=== PATIENT | male | born 1980 | race Caucasian/White ===

== ENCOUNTER 2021-01-13 08:49 | Emergency (ER) | payer OTHER, SELFPAY ==
--- NOTE | ~2021-01-13 | XR_ITS ---
EXAMINATION: XR chest 2V DATE: 01/13/2021 09:52 INDICATION: Productive cough. Smoker. TECHNIQUE: Frontal and lateral views of the chest were obtained. COMPARISON: None. FINDINGS: The chest demonstrates clear lungs without pneumonia, pleural effusion, or pneumothorax. Th e heart size is normal. IMPRESSION: 1. No acute cardiopulmonary disease. Reviewed, dictated and finalized at location A.
[2021-01-13 09:10] VITALS: BP 124/83; PULSE 82; RESP 16; TEMP 36.3; O2SAT 100
--- NOTE | 2021-01-13 09:22 | ED.URI ---
HPI - URI/Sore Throat General Chief Complaint: Upper Respiratory Infection Stated Complaint: Cough,Congestion Time Seen by Provider: 01/13/21 09:23 Source: patient Mode of arrival: ambulatory Limitations: no limitations History of Present Illness HPI Narrative: Yusef Delgado is a 40 yo male with no PMH who comes to [facility] with a 1 week history of sore throat, intermittent occipital headache, subjective temperature, shortness of breath, and sinus drainage. He rates his sore throat is a 3 on a 10; he has not been monitoring his fever- has been taking Krysta Tylenol and Mucinex Related Data Home Medications Medication Instructions Recorded Confirmed No Home Medications 01/13/21 01/13/21 Allergies Allergy/AdvReac Type Severity Reaction Status Date / Time red meat Allergy Unknown Uncoded 01/13/21 09:28 Review of Systems Review of Systems: Narrative: CONSTITUTIONAL: Denies fever, chills, sweats. Complaining of shortness of breath EYES: Denies visual changes, redness, discharge. ENT: Denies rhinorrhea, has congestion, has sore throat, otalgia. CARDIOVASCULAR: Denies chest pain, palpitations, edema. RESPIRATORY: Denies dyspnea, wheezing, cough GASTROINTESTINAL: Denies abdominal pain, nausea, vomiting, diarrhea. GENITOURINARY: Denies dysuria, hematuria, abnormal discharge SKIN: Denies rash or itching. NEUROLOGIC: Denies numbness, or focal weakness. PSYCHIATRIC: Denies anxiety or depression. [facility] Past Medical History Medical History Aspiration pneumonia Social History Social History (Updated 01/13/21 @ 09:26 by Lisbeth Bonilla CNP) Smoking packs per day: 0.5 Smoking cigarettes per day: 10.0 Smoking status: Current every day smoker Tobacco type: cigarettes Alcohol intake: current Gender identity (if verbalized by the patient): Male Comments At time of signature, I agree with nursing past medical, surgical, social and family history. There is no relevant family history pertinent to the presenting complaint. Exam Narrative: Exam Narrative: GENERAL: This is a well-nourished, well-developed patient, in mild distress. States feels short of breath looks ill HEAD: normocephalic, atraumatic. EYES: Sclera clear/white. Vision is grossly intact. EARS: External ears normal, auditory canals clear with fluid behind right TM, TMs without perforation. Hearing grossly intact. NOSE: External nose normal without nasal discharge, nares without redness, has rhinorrhea. THROAT: Mucous membranes moist, posterior pharynx erythema with bilateral submandibular tenderness the right greater than the left NECK: Neck supple, tender R> L CARDIOVASCULAR: Regular rate and rhythm without murmurs, gallops, or rubs. RESPIRATORY: Clear to auscultation. Breath sounds equal bilaterally. has coarseness and wheezes on R, rales, or rhonchi. GASTROINTESTINAL: Abdomen soft, non-tender, SKIN: warm, intact with no suspicious lesions or rash, good texture and turgor. NEURO: awake, alert, and oriented to person, place and time. There were no obvious focal neurologic abnormalities. Steady gait EXTREMITIES: Normal range of motion. BACK: Nontender without deformity Course Course Emergency Course: Patient comes here for complaints of sore throat headache, shortness of breath, congestion; has been using Tylenol and Krysta and Mucinex Strep test- neg Covid rapid - neg, PCR sent chest Xray -demonstrates clear lungs, without pneumonia, pleural effusion, pneumothorax, heart size is normal-no acute cardiopulmonary disease Started on prednisone, Robitussin with codeine cough syrup, Zithromax, change Krysta to use Zyrtec, continue Mucinex Referral sheet for PCP Vital Signs Vital signs: Vital Signs Temperature 97.4 F L 01/13/21 09:10 Pulse Rate 82 01/13/21 09:10 Respiratory Rate 16 01/13/21 09:10 Blood Pressure 124/83 01/13/21 09:10 Pulse Oximetry 100 01/13/21 09:10
--- NOTE | 2021-01-13 16:27 | PC.NURSE ---
1625- pharmacy switched to [facility]- called and left message.
[2021-01-14 19:49] LABS: SARS-CoV-2 RNA PCR Negative
== END 2021-01-13 10:00 | disposition home or self-care (01) ==
PROVIDERS: Emergency Provider Nurse Practitioner
DX: J06.9 Acute upper respiratory infection, unspecified (principal); Z20.822 Contact with and (suspected) exposure to COVID-19; F17.210 Nicotine dependence, cigarettes, uncomplicated
CPT/HCPCS: 71046; 87081; 87426; 87880; 99203; C9803; G0463; U0003; U0005

== ENCOUNTER 2021-01-26 10:27 | Emergency (ER) | payer OTHER, SELFPAY ==
--- NOTE | ~2021-01-26 | XR_ITS ---
EXAMINATION: XR chest 2V DATE: 01/26/2021 11:13 INDICATION: Productive cough. Fever. TECHNIQUE: Frontal and lateral views of the chest were obtained. COMPARISON: Chest 2 views 01/13/2021 FINDINGS: The chest demonstrates clear lungs without pneumonia, pleural effusion, or pneumothorax. Th e heart size is normal. IMPRESSION: 1. No acute cardiopulmonary disease. Reviewed, dictated and finalized at location B.
[2021-01-26 10:37] VITALS: BP 115/76; PULSE 86; RESP 16; TEMP 36.7; O2SAT 100
--- NOTE | 2021-01-26 10:56 | ED.URI ---
HPI - URI/Sore Throat General Chief Complaint: Upper Respiratory Infection Stated Complaint: cough Time Seen by Provider: 01/26/21 10:38 Source: patient and RN notes reviewed Mode of arrival: ambulatory Limitations: no limitations History of Present Illness HPI Narrative: Patient presents today with cough, right ear pain, headache, nasal congestion, severe sore throat, body aches, fever up to 101, shortness of breath, nausea, some mild diarrhea. Patient does report some difficulty smelling, but is attributing this to his nasal congestion. Patient was seen at [facility] on 01/13/2021, diagnosed with an upper respiratory infection after his rapid strep, chest x-ray, and rapid Covid test were all negative. States his symptoms improved for 3 to 4 days after taking azithromycin, prednisone, Flonase and Zyrtec. Symptoms began again yesterday, and fever began again this morning. States his girlfriend's child and his girlfriend are home sick today with upper respiratory symptoms and possible flu, but he is unsure if they have actually been diagnosed. He is still taking the Zyrtec and Flonase as well as some [id number] daytime and nighttime medications without relief. Smokes 0.5 packs/day. He is also using an albuterol inhaler occasionally, but reports it is not helping. MD elicited complaint: cough, sore throat and nasal congestion Related Data Allergies Allergy/AdvReac Type Severity Reaction Status Date / Time red meat Allergy Anaphylaxis Uncoded 01/26/21 10:45 Review of Systems Review of Systems: Narrative: CONSTITUTIONAL: Denies chills, or sweats. + Fever, body aches EYES: Denies visual changes, redness, or discharge. ENT: Denies rhinorrhea. + Sore throat, right ear pain, postnasal drip, congestion CARDIOVASCULAR: Denies chest pain, palpitations, or edema. RESPIRATORY: + Cough, shortness of breath GASTROINTESTINAL: Denies abdominal pain, vomiting. + Nausea, diarrhea GENITOURINARY: Denies dysuria or hematuria. SKIN: Denies rash, itching, or wounds. MUSCULOSKELETAL: Denies back pain, joint pain, or myalgia. NEUROLOGIC: Denies numbness, tingling, or weakness. + Headache PSYCH: Denies depression or anxiety. [facility] Past Medical History Medical History Aspiration pneumonia Social History Social History (Updated 01/13/21 @ 09:26 by Lisbeth Bonilla CNP) Smoking packs per day: 0.5 Smoking cigarettes per day: 10.0 Smoking status: Current every day smoker Tobacco type: cigarettes Alcohol intake: current Gender identity (if verbalized by the patient): Male Comments At time of signature, I have reviewed and agree with nursing past medical, surgical, social and family history unless otherwise noted. Please see nursing chart for further information. There is no relevant family history pertinent to the presenting complaint Exam Narrative: Exam Narrative: GENERAL: Mildly ill-appearing, well-nourished, and in no acute distress. HEAD: Normocephalic, atraumatic. EYES: EOMI. No redness or drainage. Conjunctivae normal. ENT: Mucous membranes pink and moist. Nares congested. No rhinorrhea. TMs normal bilaterally. Throat very mildly erythematous without edema or exudate. Uvula midline. NECK: Normal AROM. Supple. No lymphadenopathy. CHEST: No respiratory distress. Diminished in the bilateral bases. Faint end expiratory wheeze in the right upper lobe. HEART: Regular rate and rhythm. No murmur appreciated. Normal peripheral pulses. EXTREMITIES: Normal range of motion. No edema. SKIN: Warm, dry, no rash. Capillary refill normal. Normal skin turgor. NEURO: No focal deficits. Alert and oriented x3. Gait steady. PSYCH: Normal affect. No signs of depression or anxiety. Course Vital Signs Vital signs: Vital Signs Temperature 98.0 F 01/26/21 10:37 Pulse Rate 86 01/26/21 10:37 Respiratory Rate 16 01/26/21 10:37 Blood Pressure 115/76 01/26/21 10:37 Pulse Ox
== END 2021-01-26 11:49 | disposition home or self-care (01) ==
PROVIDERS: Emergency Provider Nurse Practitioner
DX: J40 Bronchitis, not specified as acute or chronic (principal); J01.91 Acute recurrent sinusitis, unspecified; Z20.822 Contact with and (suspected) exposure to COVID-19; F17.210 Nicotine dependence, cigarettes, uncomplicated
CPT/HCPCS: 71046; 87426; 87804; 87880; 99213; C9803; G0463